=== PATIENT | male | born 1975 | race Caucasian/White ===

== ENCOUNTER → 2021-05-25 09:12 | Outpatient (BNVA) | payer MEDICAID, SELFPAY | PROVIDERS: PCP Nurse Practitioner Family; Visit Provider Nurse Practitioner Family | DX: E11.9 Type 2 diabetes mellitus without complications (principal) | CPT/HCPCS: 80053; 80061; 83036; 83721; 84443; 85025 ==

== ENCOUNTER → 2021-11-22 09:14 | Outpatient (BNVA) | payer MEDICAID, SELFPAY | PROVIDERS: PCP Nurse Practitioner Family; Visit Provider Nurse Practitioner Family | DX: E78.1 Pure hyperglyceridemia (principal); E11.9 Type 2 diabetes mellitus without complications | CPT/HCPCS: 80053; 80061; 83036 ==

== ENCOUNTER 2022-07-13 10:12 | Outpatient (CLI) | payer OTHER, SELFPAY ==
[2022-02-28 16:15] VITALS: BP 111/73; BMI 24.5
--- NOTE | 2022-07-13 11:00 | XR_ITS ---
WS: [id number] EXAMINATION: XR shoulder LT min 2V* [id number] REASON FOR EXAM: SHOULDER PAIN COMPARISON: None available. ORDER DATE: 07/13/2022 11:02 AM TECHNIQUE: 3 views of the left shoulder were obtained. X-RAY FINDINGS: No fractures or dislocations. Normal motion of the shoulder with internal/external rotation. No degenerative changes. Acromioclavicular joint appears unremarkable. Limited visualization of the adjacent hemithorax is unremarkable. There is a normal variation type II acromial process XR/XR shoulder LT min 2V* [id number] IMPRESSION: No fractures or dislocations of the left shoulder. Type II acromial process may predispose to shoulder impingement syndrome
== END 2022-07-13 10:13 | disposition home or self-care (01) ==
LOC: RAD 10:21
PROVIDERS: PCP Family Medicine; Visit Provider Dermatology
DX: M25.512 Pain in left shoulder (principal)
CPT/HCPCS: 73030

== ENCOUNTER → 2023-02-13 09:30 | Outpatient (BNVA) | payer OTHER, SELFPAY ==
[2022-09-16 14:57] VITALS: BP 111/73; BMI 24.5
== END ==
PROVIDERS: PCP Family Medicine; Visit Provider Psychiatry & Neurology Psychiatry
DX: F41.1 Generalized anxiety disorder (principal)
CPT/HCPCS: 80061; 83036

== ENCOUNTER → 2023-08-29 14:34 | Outpatient (BNVA) | payer MEDICAID, SELFPAY ==
[2023-03-16 14:59] VITALS: BP 124/80; BMI 30.4
== END ==
PROVIDERS: PCP Family Medicine; Visit Provider Podiatrist Foot & Ankle Surgery
DX: M77.41 Metatarsalgia, right foot; M77.42 Metatarsalgia, left foot; M21.6X1 Other acquired deformities of right foot; M21.6X2 Other acquired deformities of left foot; M76.821 Posterior tibial tendinitis, right leg; M76.822 Posterior tibial tendinitis, left leg
CPT/HCPCS: 73630

== ENCOUNTER 2023-09-20 10:02 | Outpatient (CLI) | payer OTHER, SELFPAY ==
[2023-03-16 14:59] VITALS: BP 124/80; BMI 30.4
--- NOTE | 2023-09-20 10:17 | XR_ITS ---
WS: [id number] Left shoulder, 2 views, 09/20/2023 Clinical Data: SHOULDER PAIN W/ROM DIFFICULTY Comparison: Left shoulder, 07/13/2022 Findings: No fractures or dislocations are seen. The AC joint shows mild elevation of the clavicle relative to the acromion which is unchanged.. The adjacent left clavicle, left scapula and ribs are normal. The s oft tissues are unremarkable. Impression: Minimal elevation of the distal left clavicle relative to the acromion unchanged.
--- NOTE | 2023-09-20 10:17 | XR_ITS ---
WS: [id number] Left knee, AP and lateral views, 09/20/2023 Clinical Data: KNEE PAIN W/ROM DIFFICULTY Comparison: None. Findings: No fractures or dislocations are seen. The joint spaces are normal. The patella is intact. The soft t issues are unremarkable. Impression: Negative left knee. Kellgren-Roverto Classification: grade 0 (none): definite absence of x-ray changes of osteoarthritis
== END 2023-09-20 10:03 | disposition home or self-care (01) ==
LOC: RAD 10:11
PROVIDERS: PCP Family Medicine; Visit Provider Family Medicine
DX: Z02.71 Encounter for disability determination (principal); M25.562 Pain in left knee; M25.512 Pain in left shoulder; M25.612 Stiffness of left shoulder, not elsewhere classified; M25.662 Stiffness of left knee, not elsewhere classified
CPT/HCPCS: 73030; 73560